=== PATIENT | female | born 1945 | race Caucasian/White ===

== ENCOUNTER 2021-03-05 19:44 | Observation (INO) | payer MEDICARE ==
[~2021-03-05] VITALS: Ht 152.4 cm; Wt 91.9 kg
[~2021-03-05 19:44] MED LIST: ATORVASTATIN CA40 MG PO; CHLORDIAZEPOXIDE5 M2 PO; COLESTID1 GM PO; DILAUDID 2 MG TA2 MG PO; FISH OIL OMEGA1 EAC1 PO; GLIPIZIDE ER5 MG PO; HYZAAR 100-12.1 EACH PO; LIBRAX PO; MULTIVITAMINS1 EAC7 PO; PRILOSEC 20 MG20 MG PO; QUESTRAN PACKET4 GM PO; ROBAXIN 750 MG750 M1 PO; SENOKOT-S1 TA1 PO; SINGULAIR 10 MG10 M1 PO; TRAMADOL 50 MG50 MG PO; TUMS PO; TYLENOL325 MG PO; VALIUM5 MG PO; WELLBUTRIN XL150 MG PO; XANAX 0.25 MG0.25 MG PO; XARELTO20 MG PO; ZOLOFT25 MG PO; [UNRECOGNIZED DRUG - OTHER] PO
[2021-03-05 19:46] VITALS: BP 157/77
[2021-03-05 19:54] LABS: URINE BILIRUBIN NEGATIVE (Negative); URINE BLOOD 3+ (Negative); URINE COLOR YELLOW; URINE GLUCOSE-RANDOM NEGATIVE (Negative); URINE KETONES NEGATIVE (Negative); URINE LEUKOCYTES-REFLEX 1+ (Negative); URINE NITRITE-REFLEX NEGATIVE (Negative); URINE PROTEIN TRACE (Negative); URINE UROBILINOGEN 0.2 E.U./dl (0.2-1.0)
[2021-03-05 19:56] LABS: SQUAMOUS 4-10 Moderate /LPF (0-3); URINE CLARITY CLOUDY; URINE WBC-REFLEX 0-5 Rare /HPF (0-5)
[2021-03-05 19:57] LABS: BACTERIA-REFLEX >30 Many /HPF (None Seen); CASTS None Seen /LPF (None Seen); CRYSTALS None Seen /LPF (None Seen); URINE RBC 0-2 Rare /HPF (0-2)
[2021-03-05 20:21] LABS: ABSOLUTE EOSINOPHILS 0.1 thou/uL (0.0-0.7); ABSOLUTE LYMPHOCYTES 1.9 thou/uL (0.8-5.3); ABSOLUTE MONOCYTES 0.3 thou/uL (0.0-1.2); ABSOLUTE NEUTROPHILS 3.9 thou/uL (1.6-8.1); BASOPHILS 0.8 %; EOSINOPHILS 1.6 %; HEMATOCRIT 37.7 % (37.0-47.0); HEMOGLOBIN 12.6 gm/dL (12.0-15.0); LYMPHOCYTES 30.6 %; MCH 30.9 pg (26.0-34.0); MCHC 33.5 g/dL (28.0-37.0); MCV 92.1 fL (80.0-100.0); MPV 8.1 fl. (7.2-11.1); NUCLEATED RBCS 0 /100WBC; PLATELET COUNT* 183 thou/uL (150-400); RBC 4.09 mil/uL (4.20-5.00); RDW-CV 13.8 % (10.5-14.5); WBC 6.3 thou/uL (4.0-11.0)
[2021-03-05 20:31] LABS: CALCIUM 9.1 mg/dL (8.5-10.1); CREATININE 0.8 mg/dL (0.6-1.3); POTASSIUM 3.5 mmol/L (3.5-5.1)
[2021-03-05 20:35] LABS: ALBUMIN 3.4 g/dL (3.4-5.0); MAGNESIUM 2.3 mg/dL (1.8-2.4); TOTAL BILIRUBIN 0.4 mg/dL (<0.1-1.0); TOTAL PROTEIN 6.9 g/dL (6.4-8.2)
[2021-03-05 21:55] LABS: INR 1.2; PROTIME 12.8 Seconds (9.20-11.50)
[2021-03-05 23:20] VITALS: BP 114/69
[2021-03-05 23:26] VITALS: BP 203/82
[2021-03-05 23:30] VITALS: BP 114/69
[2021-03-05] MEDS ORDERED: COZAAR 25 MG TA25 M1 PO (23:55)
[2021-03-05] MEDS ORDERED: HYDROCHLOROTH12.5 M2 PO (23:56)
[2021-03-05] MEDS ORDERED: LIPITOR40 MG PO (23:57)
[2021-03-05] MEDS ORDERED: CALCIUM500 MG PO (23:58)
[2021-03-05] MEDS ORDERED: FISH OIL 1,001000 M2 PO (23:59)
[2021-03-06] MEDS ORDERED: TYLENOL ARTHRI650 MG PO
[2021-03-06 07:56] VITALS: BP 177/44
--- NOTE | 2021-03-06 10:25 | EKG ---
[place] [address] ELECTROCARDIOGRAM REPORT Name: JEROME ROBERTS Room: [address] M.R.#: [id number] Admission: 03/05/21 Attend Phys: Elia Thorne Discharge: Date of : 47 Date of Service: 03/05/[birth year] Report #: [id number] THIS REPORT FOR: //name// [facility] ED Test Date: 2021-03-05 Test Time: 19:47:08 Pat Name: JEROME ROBERTS Department: Room: [facility] Gender: F Birth Attendant: BXIONG : 1945 Requested By: Arabella Webster Order Number: [id number] MD: Jens Crane Measurements Intervals [place] Rate: 65 P: 43 AR: 152 QRS: 20 QRSD: 109 T: 21 QT: 384 QTc: 400 Interpretive Statements Sinus rhythm Borderline low voltage, extremity leads Minimal ST elevation, lateral leads Compared to ECG 02/20/2017 10:32:21 ST (T wave) deviation now present Intraventricular conduction delay no longer present Electronically Signed On 03-06-2021 10:25:37 CDT by Jens Crane [email or web address] <ELECTRONICALLY SIGNED> By: Jens Crane MD, FACC 03/06/21 1025 46 46 Jens Crane MD, FACC /EPI
[2021-03-06 11:02] LABS: HEMATOCRIT 36.2 % (37.0-47.0); NUCLEATED RBCS 0 /100WBC
[2021-03-06 11:03] LABS: ABSOLUTE EOSINOPHILS 0.1 thou/uL (0.0-0.7); ABSOLUTE LYMPHOCYTES 1.3 thou/uL (0.8-5.3); ABSOLUTE MONOCYTES 0.3 thou/uL (0.0-1.2); ABSOLUTE NEUTROPHILS 5.3 thou/uL (1.6-8.1); BASOPHILS 0.5 %; EOSINOPHILS 0.7 %; HEMOGLOBIN 12.5 gm/dL (12.0-15.0); LYMPHOCYTES 18.5 %; MCH 31.5 pg (26.0-34.0); MCHC 34.4 g/dL (28.0-37.0); MCV 91.6 fL (80.0-100.0); MONOCYTES 4.9 %; MPV 8.2 fl. (7.2-11.1); PLATELET COUNT* 178 thou/uL (150-400); POLYS 75.4 %; RBC 3.96 mil/uL (4.20-5.00); RDW-CV 13.7 % (10.5-14.5)
[2021-03-06 11:11] LABS: CALCIUM 8.7 mg/dL (8.5-10.1); CREATININE 0.8 mg/dL (0.6-1.3); MAGNESIUM 2.1 mg/dL (1.8-2.4); PHOSPHORUS* 3.4 mg/dL (2.5-4.9); POTASSIUM 3.4 mmol/L (3.5-5.1)
[2021-03-06 11:48] LABS: % SATURATION 23 % (20-39); IRON 74 ug/dL (50-175)
[2021-03-06 16:00] VITALS: BP 200/74
[2021-03-06 21:00] VITALS: BP 153/59
[2021-03-07] VITALS (7 sets, daily range): BP systolic 153–163; BP diastolic 59–68
== END 2021-03-07 15:30 ==
LOC: M.ERS 19:44 → M.3W 22:13 → M.TBA-ER 22:13 → M.3W 23:17
PROVIDERS: Emergency Medicine; Internal Medicine; ADMIT Internal Medicine; ATTEND Internal Medicine
DX: R10.31 Right lower quadrant pain (principal); G89.29 Other chronic pain; R19.7 Diarrhea, unspecified; R91.8 Other nonspecific abnormal finding of lung field; K58.9 Irritable bowel syndrome, unspecified; I10 Essential (primary) hypertension; E11.9 Type 2 diabetes mellitus without complications; M19.90 Unspecified osteoarthritis, unspecified site; I25.10 Atherosclerotic heart disease of native coronary artery without angina pectoris; E78.5 Hyperlipidemia, unspecified; M48.00 Spinal stenosis, site unspecified; N20.1 Calculus of ureter; Z86.718 Personal history of other venous thrombosis and embolism; Z79.01 Long term (current) use of anticoagulants; Z79.82 Long term (current) use of aspirin; Z79.899 Other long term (current) drug therapy